=== PATIENT | female | born 1975 | race Two or more races ===

== ENCOUNTER 2017-11-19 13:54 | Outpatient (CLI) | payer OTHER | END 2017-11-19 14:53 | disposition home or self-care (01) | LOC: NUCLEAR 13:54 | DX: C73 Malignant neoplasm of thyroid gland (principal) | CPT/HCPCS: 79005; A9517 ==

== ENCOUNTER 2017-11-26 14:05 | Outpatient (CLI) | payer OTHER | END 2017-11-26 15:00 | disposition home or self-care (01) | LOC: NUCLEAR 14:05 | DX: C73 Malignant neoplasm of thyroid gland (principal) ==